=== PATIENT | female | born 1955 | race Caucasian/White ===

== ENCOUNTER 2018-12-01 10:44 | Observation (INO) ==
--- NOTE | 2018-12-01 11:16 | EKG Report ---
Test Performed on : 12/01/2018 11:02:00 AM Test Reason : chest pain Blood Pressure : / mmHG Vent. Rate : 064 BPM Atrial Rate : 064 BPM P-R Int : 174 ms QRS Dur : 080 ms QT Int : 388 ms P-R-T Axes : 072 008 041 degrees QTc Int : 400 ms Normal sinus rhythm. Possible Left atrial enlargement Septal infarct , age undetermined Abnormal ECG No previous ECGs available Unconfirmed Result
--- NOTE | 2018-12-01 11:36 | PROVIDER DOCUMENTATION ---
This chart was entered by Dara Delong Scribe, acting as scribe for Tevin Hall MD. HPI-Head Injury - General Chief Complaint: Heart Alert Stated Complaint: HEART PROBS. Time Seen by Provider: 12/01/18 11:06 Source: patient, family () Unable to obtain history due to:: urgency Allergies/Adverse Reactions: Patient Allergies Allergy/AdvReac Type Severity Reaction Status Date / Time Latex, Natural Rubber AdvReac Intermediate HIVES Verified 12/01/18 17:48 Sulfa (Sulfonamide AdvReac Intermediate NAUSEA/VOMI Verified 12/01/18 17:48 Antibiotics) TING Home Medications: Home Medication List Medication Instructions Recorded Confirmed Last Taken Type ATORVAstatin [Lipitor] 80 mg PO QHS 12/08/13 12/01/18 Unknown History Clopidogrel [Plavix] 75 mg PO QHS 12/08/13 12/01/18 Unknown History LISINOpril [Prinivil] 5 mg PO QHS 12/08/13 12/01/18 Unknown History Meloxicam [Mobic] 15 mg PO DAILY 12/08/13 12/01/18 Unknown History Alprazolam 1 mg PO QHS 12/01/18 12/01/18 Unknown History Aspirin [Aspir-Low] 81 mg PO DAILY 12/01/18 12/01/18 Unknown History Levothyroxine Sodium [Synthroid] 1 tab PO DAILY@0600 12/01/18 12/01/18 Unknown History Metoprolol Succinate [Toprol Xl] 1 tab PO DAILY 12/01/18 12/01/18 Unknown History Ranolazine [Ranexa] 1 tab PO BID 12/01/18 12/01/18 Unknown History Sertraline HCl 200 mg PO DAILY 12/01/18 12/01/18 Unknown History - History of Present Illness-Head Injury Nature of Presenting Problem: 63 yowf with history of CAD (S/P CABG, S/P MIs),HTN, hyperlipidemia who past out in kitchen with LOC 2 days ago. Patient reports taking Plavix. Patient developed aching in both arms this am around 0930 which reminded her of her last RI. Denies chest pain. Head Injury Location: reports: global Other injuries associated with incident:: reports: head, RUE, LUE Quality of Pain: reports: aching Severity: reports: moderate Onset/Duration: reports: 2 days ago Timing: reports: still present, intermittent Method of Injury: reports: fell Any recent trauma/injury?: reports: to head (fell on thursday) Loss of Consciousness: prolonged (minutes) (5 minutes) Injury Associated Symptoms: reports: arm pain (bilateral), headaches. denies: back/neck pain, chest pain, nausea, shortness of breath, sensory/motor loss, vomiting, weakness Locality of Occurance: Home Similar Symptoms Previously?: Yes Recently seen or treated by another doctor?: No Review of Systems - Adult - REVIEW OF SYSTEMS - ADULT Constitutional: denies: chills, fever Eyes: reports: no symptoms reported Ears, Nose, Mouth & Throat: reports: no symptoms reported Cardiovascular: reports: see HPI, syncope (on thursday). denies: chest pain, palpitations Respiratory: denies: shortness of breath, wheezing Gastrointestinal: denies: abdominal pain, diarrhea, nausea, vomiting Genitourinary: reports: no symptoms reported Musculoskeletal: reports: see HPI, other (bilateral arm pain) Integumentary: reports: no symptoms reported Neurological: reports: see HPI, headache/migraines, syncope. denies: ataxia, dizziness/vertigo, seizure, slurred speech Psychiatric: reports: no symptoms reported Endocrine: reports: no symptoms reported Hematologic/Lymphatic: reports: no symptoms reported Allergic/Immunologic: reports: no symptoms reported All Other Systems: Reviewed and Negative Past History - Adult - PAST MEDICAL HISTORY-ADULT Review of Records: reports: Old Records Reviewed, Nursing Assessment Review, Medications Reviewed, Social history reviewed & non-contributory. Major Childhood Illnesses: reports: denies history Cardiovascular: reports: HTN, hyperlipidemia, RI Respiratory: reports: denies history Gastrointestinal: reports: denies history Obstetrical/Gynecological: reports: denies history Genitourinary: reports: denies history Musculoskeletal: reports: denies history Hand Dominance: Right Handed Neurological: reports: denies history Psychiatric: reports: anxiety, depression Endocrine/Immune: reports: denies history Other Conditions: reports: denies history - PRIOR SURGERIES/PROCEDURES Surgical/Procedure History: reports: CABG, orthopedic (extremity) - PRIOR HOSPITALIZATIONS Prior Hospitalizations: reports: for similar symptoms - IMMUNIZATION STATUS Childhood Immunizations: See Nurse Assessment Flu Vaccine: See Nurse Assessment - FAMILY HISTORY Family History: reviewed, not pertinent - SOCIAL HISTORY Smoking: denies Substance Use: alcohol Alcohol Use Frequency: 3-4 times a week Number of drinks per typical drinking period:: 2 drinks Living Situation: family Physical Exam- Neurological - Physical Exam-Neuro Initial Vital Signs Reviewed: Yes General Appearance: appears well, alert, mild distress, anxious Eye Exam: bilateral eye: normal inspection, PERRL, EOMI HENMT: moist mucous membranes, normal ENT inspection Head Injury: other (GALEANA since fall). 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 Exam: normal hearing, normal speech, PERRL Coordination/Gait: normal gait Motor/Sensory: no motor deficit, no sensory deficit, no pronator drift Neurologic: grossly normal, no motor/sensory deficits Integumentary: normal color, normal turgor, other (clammy) Psych/Mental Status: normal thought content, normal thought process, oriented x 3, anxious - Glascow Coma Scale Best Eye Response: (4) open spontaneously Best Verbal Response: (5) oriented Best Motor Response: (6) obeys commands Total Glascow Score: 15 Progress - PLAN OF CARE/RESULTS Progress/Plan/Lab Results: heart score 4 Result Diagrams: 12/01/18 11:42 12/01/18 11:42 - REASSESSMENT Reassessment #1 Time Reassessed: 12:07 (pt anxiety has improved ) Status: improving Reassessment #2 Time Reassessed: 13:23 Status: unchanged Reassessment Comment: pt is calm and resting Reassessment #3 Time Reassessed: 14:35 (dr hall speaking with ) Status: unchanged Reassessment Comment: pt isresting in bed - EKG 1 Time of EKG reading by physician:: 11:02 EKG Read and Signed by:: Tevin Hall EKG Interpretation (*Must complete 3 of following elements*): Abnormal Rate: 64 Rhythm: nsr [place]: normal QRS: other (poss left atrial enlargement) ME Interval: normal ST Wave: normal Comments: septal infarct, age undetemined - XRAY 1 XRAY: Bilateral XRAY Study: Chest Impression: See EMR Report (EXAM: CHEST-1 VIEW HISTORY: cp TECHNIQUE: Chest single view COMPARISON: 12/08/2013 FINDINGS: The lungs are well expanded. The heart is not enlarged. The vessels are not distended. There are no infiltrates. No effusion identified. There are left hilar surgical clips. IMPRESSION: Negative exam. Electronically signed by Raymon Tarango 2018 12:03 PM 12/01/18 1203 Interpreting Physician: Raymon Tarango MD Dictated Date/Time: 12/01/18 1203 cc: Pat Watkins; None, PCP) - CT/MRI 1 CT Study: Head Impression: See EMR Report (EXAM: CT HEAD W/O CONTRAST HISTORY: head ache, taking blood thinner TECHNIQUE: CT head without contrast COMPARISON: None. FINDINGS: No parenchymal hemorrhage. No epidural or subdural hematoma. No subarachnoid hemorrhage. Minimal microvascular ischemic changes. No mass identified on this noncontrasted exam. No hydrocephalus. No sinus opacification. IMPRESSION: No hemorrhage. This exam was performed using automated exposure control, adjustment of mA or kV according to patient size, and/or use of iterative reconstruction technique. Electronically signed by Raymon Tarango 12/01/2018 11:33 AM 12/01/18 1133 Interpreting Physician: Raymon Tarango MD Dictated Date/Time: 12/01/18 1131 cc: Tevin Hall MD; None,PCP) 2 CT Study: Cervical Spine Impression: See EMR Report (EXAM : CT CERVICAL SPINE W/O CONTRAST HISTORY: fall,head injury TECHNIQUE: CT cervical spine without contrast COMPARISON: None. FINDINGS: Cervical spine: There is good alignment to the cervical spine. No precervical soft tissue swelling. No subluxation. Small degenerative bone spurs in the lower cervical spine primarily at C5-6. No fracture. IMPRESSION: Cervical spine: No acute fracture. This exam was performed using automated exposure control, adjustment of mA or kV according to patient size, and/or use of iterative reconstruction technique. Electronically signed by Raymon Tarango 12/01/2018 11:36 AM 12/01/18 1136 Interpreting Physician: Raymon Tarango MD Dictated Date/Time: 12/01/18 1135 cc: Tevin Hall MD; None,PCP) - CONSULTS/PCP/HOSPITALIST Notification #1 *Consult/PCP/Hospitalist*: hospitalist dr gibbons Time Discussed: 14:48 Consult Disposition: Admit Departure - Departure Date of Disposition Decision: 12/01/18 Time of Disposition Decision: 12:00 DIAGNOSIS: Syncope Qualifiers: Syncope type: unspecified Qualified Code(s): R55 - Syncope and collapse CAD (coronary artery disease) Qualifiers: Coronary Disease-Associated Artery/Lesion type: [place] artery [place] vs. transplanted heart: [place] heart Associated angina: angina presence unspecified Qualified Code(s): I25.10 - Atherosclerotic heart disease of [place] coronary artery without angina pectoris Hematuria Qualifiers: Hematuria type: asymptomatic microscopic Qualified Code(s): R31.21 - Asymptomatic microscopic hematuria Disposition: ADMITTED INPATIENT 09 Certified Medical Emergency: Emergent Condition: Stable - Critical Care Note This patient required my direct & personal management of CC.: No Attestation - Physician/ [place] Attestation Patient care was provided by Advanced Practice Provider:: No The physician spent face to face time with patient:: Yes Advanced Practice Provider documentation review:: Supervising physician onsite and consulted in the evaluation and care of this patient. The physician did have a face to face encounter with the patient. This chart was documented by the indicated scribe, (Dara Delong Scribe) and accurately reflects the services I performed and decisions made by me, Tevin Hall MD, as attested by the provider's signature.
[2018-12-01] MEDS ORDERED: ASPIRIN PO ONE (11:39)
--- NOTE | 2018-12-01 11:39 | Diag Imaging Result Doc PS360 ---
EXAM : CT CERVICAL SPINE W/O CONTRAST HISTORY: fall,head injury TECHNIQUE: CT cervical spine without contrast COMPARISON: None. FINDINGS: Cervical spine: There is good alignment to the cervical spine. No precervical soft tissue swelling. No subluxation. Small degenerative bone spurs in the lower cervical spine primarily at C5-6. No fracture. IMPRESSION: Cervical spine: No acute fracture. This exam was performed using automated exposure control, adjustment of mA or kV according to patient size, and/or use of iterative reconstruction technique. Electronically signed by Raymon Tarango 12/01/2018 11:36 AM
[2018-12-01 12:02] LABS: BASO# 0.07 X1000 (0.0-0.2); BASO% 0.8 % (0.0-0.8); EOS# 0.04 X1000 (0.0-0.7); EOS% 0.4 % (0.0-10.0); HEMATOCRIT 36.8 % (37.0-47.0); HEMOGLOBIN 12.3 g/dL (12.0-16.0); IMM GRAN# 0.02 X1000 (0.0-0.04); IMM GRAN% 0.2 % (0.0-0.5); LYMPH# 1.27 X1000 (1.2-3.4); LYMPH% 14.1 % (20.5-51.1); MCH 31.5 PG (27-31); MCHC 33.4 g/dL (33-37); MCV 94.4 FL (81-99); MONO# 0.49 X1000 (0.11-0.59); MONO% 5.4 % (1.7-9.3); MPV 10.1 FL (7.4-10.4); NEUT# 7.14 X1000 (1.4-6.5); NEUT% 79.1 % (42.2-75.2); PLT 328 X1000 (130-400); RDW 12.2 % (11.5-14.5); WBC 9.03 X1000 (4.8-10.8)
[2018-12-01 12:05] LABS: BILIRUBIN URINE NEGATIVE (NEGATIVE); BLOOD URINE 2+ (NEGATIVE); CLARITY CLEAR (CLEAR); COLOR YELLOW; GLUCOSE URINE NEGATIVE (NEGATIVE); KETONE URINE NEGATIVE (NEGATIVE); LEUKOCYTES URINE NEGATIVE (NEGATIVE); NITRITE URINE NEGATIVE (NEGATIVE); PROTEIN URINE NEGATIVE (NEGATIVE); UROBILINOGEN URINE NORMAL
--- NOTE | 2018-12-01 12:06 | Diag Imaging Result Doc PS360 ---
EXAM: CHEST-1 VIEW HISTORY: cp TECHNIQUE: Chest single view COMPARISON: 12/08/2013 FINDINGS: The lungs are well expanded. The heart is not enlarged. The vessels are not distended. There are no infiltrates. No effusion identified. There are left hilar surgical clips. IMPRESSION: Negative exam. Electronically signed by Raymon Tarango 12/01/2018 12:03 PM
[2018-12-01 12:16] LABS: URINE EPITHELIAL CELLS <10 /HPF (<10); URINE SOURCE CLEAN CATCH
[2018-12-01 12:23] LABS: AGAP 12; ALBUMIN 4.5 g/dL (3.5-5.0); ALKALINE PHOSPHATASE 55 U/L (32-104); BUN 10 mg/dL (8-22); CALCIUM 9.5 mg/dL (8.8-10.2); CHLORIDE 105 mmol/L (98-107); COSMO 287; CREATININE 0.8 mg/dL (0.5-0.9); ESTIMATED GFR > 60; GLUCOSE 111 mg/dL (70-104); GOT 19 U/L (10-30); GPT 17 U/L (10-36); POTASSIUM 4.1 mmol/L (3.5-5.1); SODIUM 144 mmol/L (136-145); TCO2 27 mmol/L (25-35); TOTAL PROTEIN 6.9 g/dL (6.3-8.3)
[2018-12-01 12:26] LABS: INR 0.91; PROTIME 12.7 Seconds (11.0-16.0)
[2018-12-01] MEDS ORDERED: ZOFRAN IV PRN (16:14)
[2018-12-01] MEDS ORDERED: NS 1,000 ML IV ONE (16:14)
[2018-12-01] MEDS: TYLENOL PO PRN (17:21)
--- NOTE | 2018-12-01 18:07 | HISTORY AND PHYSICAL ---
CHIEF COMPLAINT: Syncope. HISTORY OF PRESENT ILLNESS: This is a 63-year-old female with history of CAD and CABG, who passed out in her kitchen reportedly 2 days ago, and then today she had chest pain where she had aching in her limbs. The patient came in for evaluation. Her CABG was in 1995. She has had a catheterization since then that has showed 2 of her grafts were occluded. She reports some palpitations since the event. There was no preceding symptoms. No nausea, no vomiting, no diarrhea. She denies any chest pain currently, but she had an episode this morning where she had bilateral arm pain and weakness, which was similar to her episode when she had cardiac disease PA previously. She did lose consciousness. She was in the kitchen when this happened. She did fall and hit her head. She has had some intermittent headache and dizziness. No vision changes. No numbness or tingling in the lower extremities. The patient placed in observation. In any case, patient is placed in observation for chest pain. Workup in the ER was really unremarkable. PAST MEDICAL HISTORY: 1. CAD status post CABG in 1995. She has not had stents since then that she reports. Her last catheterization was a while back. I want to say she has had a bypass to PDA, obtuse marginal and LAD. I think 2 of her grafts were not patent. In any case, patient admitted for other treatments. 2. Hypertension. 3. Dyslipidemia. 4. GERD. SOCIAL HISTORY: No tobacco or ethanol currently. ALLERGIES: To latex and natural rubber. FAMILY HISTORY: Father had CAD and carotid disease. Brother had prostate cancer. SOCIAL HISTORY: She has had 3 to 4 beers every other day, but no smoking. She quit smoking in 2000, less than 1 pack a day for 25 years. MEDICATION: She is on Lipitor, Xanax Plavix, Prinivil, and Mobic. REVIEW OF SYSTEMS: Otherwise negative times a 10 point review of systems except as outlined in the HPI. PHYSICAL EXAMINATION: VITAL SIGNS: Blood pressure 134/66, heart rate of 58, respiratory rate 18, temperature 98.1 degrees and 100% on room air. CARDIOVASCULAR: Regular rate and rhythm. PULMONARY: Bilateral breath sounds. Clear to auscultation. GI: Soft, nontender, and nondistended. Bowel sounds are positive. LABORATORY DATA: White count is 9, hemoglobin and hematocrit was 12 and 36, and platelets of 328,000. Basic was normal. Urine was negative. PROBLEM LIST: 1. Syncope. We will pursue carotid and echo when available. Monitor on telemetry. Serial cardiac enzymes. Gentle hydration. Check orthostatic blood pressures and follow for change. 2. Coronary artery disease status post CABG. Her grafts have not done since 96, that was 23 years ago so entirely possible that the grafts have failed her since. She may have some issues associated with that. Noninvasive testing may be required. I will allow Cardiology to assess and decide about that. 3. Hypertension. Continue to monitor on her regular medications and follow. DISPOSITION: Pending her clinical status, anticipate discharge soon. She was a patient of Dr. Buchanan, but he has recently retired so we will need to set her up with a new primary care physician. cc: Anthony Alonso MD
[2018-12-01] MEDS: RANEXA PO SCH (20:55)
[2018-12-01] MEDS ORDERED: PRINIVIL PO SCH (21:00)
[2018-12-01] MEDS ORDERED: PLAVIX PO SCH (21:00)
[2018-12-01] MEDS ORDERED: XANAX PO SCH (21:00)
[2018-12-01] MEDS ORDERED: LIPITOR PO SCH (21:00)
[2018-12-02] MEDS: PRILOSEC PO SCH ×2 (05:43→06:57)
[2018-12-02] MEDS ORDERED: SYNTHROID PO SCH (06:00)
[2018-12-02 06:57] LABS: BASO# 0.08 X1000 (0.0-0.2); BASO% 1.3 % (0.0-0.8); EOS# 0.12 X1000 (0.0-0.7); EOS% 1.9 % (0.0-10.0); HEMATOCRIT 33.4 % (37.0-47.0); HEMOGLOBIN 11.1 g/dL (12.0-16.0); IMM GRAN# 0.02 X1000 (0.0-0.04); IMM GRAN% 0.3 % (0.0-0.5); LYMPH# 1.77 X1000 (1.2-3.4); LYMPH% 28.6 % (20.5-51.1); MCH 31.7 PG (27-31); MCHC 33.2 g/dL (33-37); MCV 95.4 FL (81-99); MONO# 0.59 X1000 (0.11-0.59); MONO% 9.5 % (1.7-9.3); MPV 10.4 FL (7.4-10.4); NEUT% 58.4 % (42.2-75.2); PLT 298 X1000 (130-400); RDW 12.1 % (11.5-14.5); WBC 6.18 X1000 (4.8-10.8)
[2018-12-02 07:39] LABS: AGAP 10; BUN 11 mg/dL (8-22); CALCIUM 8.9 mg/dL (8.8-10.2); CHLORIDE 106 mmol/L (98-107); COSMO 282; CREATININE 0.7 mg/dL (0.5-0.9); ESTIMATED GFR > 60; GLUCOSE 97 mg/dL (70-104); POTASSIUM 3.8 mmol/L (3.5-5.1); SODIUM 142 mmol/L (136-145); TCO2 26 mmol/L (25-35)
[2018-12-02] MEDS ORDERED: ZOLOFT PO SCH (09:00)
[2018-12-02] MEDS ORDERED: TOPROL XL PO SCH (09:00)
[2018-12-02] MEDS ORDERED: MOBIC PO SCH (09:00)
[2018-12-02] MEDS ORDERED: ASPIRIN EC PO SCH ×2 (09:00)
[2018-12-02] MEDS: RANEXA PO SCH (09:07)
[2018-12-02] MEDS: TYLENOL PO PRN (09:25)
--- NOTE | 2018-12-02 15:41 | Extremity Venous Study ---
EXAM: Carotid Ultrasound - 12/02/2018 HISTORY: syncope TECHNIQUE: Carotid flow studies COMPARISON: None. FINDINGS: There is some atherosclerotic plaquing at the internal carotid origin on the right. Maximal systolic velocity in the right internal carotid is 83 cm/s, and maximum diastolic velocity is 26 cm/s. The right internal carotid to common carotid systolic velocity ratio is 0.91. The flow velocities and ratio are consistent with 0-39% stenosis at the right internal carotid. The right vertebral demonstrates antegrade flow. There is mild atherosclerotic plaquing at the carotid bulb and proximal internal carotid on the left. Maximum systolic velocity in the left internal carotid is 71 cm/s, and maximum diastolic velocity is 24 cm/s. The left internal to common carotid systolic velocity ratio is 0.92. The flow velocities and ratio are consistent with 0-39% stenosis at the left internal carotid. The left vertebral demonstrates antegrade flow. IMPRESSION: 0-39% stenosis at right internal carotid. 0-39% stenosis at left internal carotid. Electronically signed by Malik Leal 12/02/2018 3:39 PM
[2018-12-02 16:21] VITALS: BP 123/66
--- NOTE | 2018-12-02 22:21 | ECHO REPORT ---
ORDER DATE: 12/02/2018 MEASUREMENTS: Left ventricular end-diastolic diameter 4.5, end-systolic diameter 3.0. Septal thickness 1.1, posterior wall thickness 1.0. Aortic root 3.1, left atrium 3.3. SUMMARY: 1. Adequate quality study. 2. Very mild sclerosis of trileaflet aortic valve demonstrated, with normal aortic valve opening evident. Peak gradient across the aortic valve is approximately 10 mmHg. Mitral, tricuspid and pulmonic valves are without evidence of structural abnormality, with trace mitral regurgitation, mild tricuspid regurgitation and mild pulmonic insufficiency. The estimated systolic PA pressure by Doppler is 35 mmHg. The aortic root is normal in size. 3. Normal left ventricular dimensions demonstrated. Estimated left ventricular ejection fraction appears to be at least 60%. No regional wall motion abnormalities are evident. Left atrium, right atrium and right ventricle are normal in size with grossly preserved right ventricular systolic function. 4. No pericardial effusion. 5. Appearance of inferior vena cava suggests normal central venous pressure. cc: MD Anthony Ralph MD
== END 2018-12-02 16:03 | disposition home or self-care (01) ==
LOC: P.ED 10:44 → P.MEDSURG 10:44
PROVIDERS: ATTEND Internal Medicine
CPT/HCPCS: 70450; 71010; 71045; 72125; 80048; 80053; 81001; 82550; 82948; 83735; 84484; 85025; 85610; 85730; 93005; 93306; 93880; 99285; A9270; J7030; XXXXX